=== PATIENT | male | born 1945 | race Caucasian/White ===

== ENCOUNTER → 2017-09-23 | Day surgery (SDC) | payer OTHER ==
[~2017-09-23] MED LIST: ACETAMINOPHEN-1 EAC1 PO; ACTONEL150 MG PO; ALLEGRA ALLERG180 MG PO; ASPIR-TRIN325 MG PO; CALCIUM CITRAT1 EAC7 PO; CRESTOR10 MG PO; IBUPROFEN 800800 M1 PO; LOSARTAN-HCTZ1 EAC2 PO; OMEPRAZOLE40 MG PO; VITAMIN D3400 UNIT PO
[2017-09-23 06:28] LABS: HEMATOCRIT 41.9 % (42.0-52.0); MCH 27.7 pg (26.0-34.0); MCHC 33.4 g/dL (28.0-37.0); MPV 7.6 fl. (7.2-11.1); RBC 5.05 mil/uL (4.50-6.00); RDW-CV 14.2 % (10.5-14.5); WBC 6.6 thou/uL (4.0-11.0)
[2017-09-23 06:34] LABS: CALCIUM 8.7 mg/dL (8.5-10.1); CREATININE 1.1 mg/dL (0.6-1.3); POTASSIUM 3.6 mmol/L (3.5-5.1)
[2017-09-23 06:44] LABS: ALBUMIN 3.4 g/dL (3.4-5.0); TOTAL BILIRUBIN 0.3 mg/dL (<0.1-1.0); TOTAL PROTEIN 6.4 g/dL (6.4-8.2)
--- NOTE | 2017-09-23 16:34 | EKG ---
[place] [address] ELECTROCARDIOGRAM REPORT Name: LARRY LEDEZMA Room: [facility]#: [id number] Admission: 09/23/17 Attend Phys: Shawn Stiles, Discharge: Date of : 41 Report #: [id number] THIS REPORT FOR: //name// [facility] Test Date: 2017-09-23 Test Time: 07:43:10 Pat Name: LARRY LEDEZMA Department: Room: Gender: M Pier Hand: : 1945 Requested By: Shawn Stiles Order Number: [id number] Reading MD: Raymond Guaman Measurements Intervals Welsh Rate: 62 P: 63 LA: 165 QRS: 65 QRSD: 123 T: 45 QT: 419 QTc: 426 Interpretive Statements Sinus rhythm Nonspecific intraventricular conduction delay No previous ECG available for comparison Electronically Signed On 09-23-2017 16:34:13 CDT by Raymond Guaman [email or web address] <ELECTRONICALLY SIGNED> By: Raymond Guaman MD, [facility] 09/23/17 1634 0743 0743 Raymond Guaman MD, FACC /EPI
--- NOTE | 2017-12-09 11:54 | OP ---
[address] [address] OPERATIVE REPORT Name: BRISALARRY Lissy Room: [facility]#: [id number] Admission: 09/23/17 Attend Phys: Shawn Stiles, Discharge: Date of : 41 Report #: [id number] THIS REPORT FOR: //name// CC: FAM unknown Shawn BARRETO [facility] DICTATED BY: Alonzo Santos DO DATE OF SERVICE: 09/23/2017 PREOPERATIVE DIAGNOSIS: Right ankle bimalleolar equivalent ankle fracture. POSTOPERATIVE DIAGNOSIS: Right ankle bimalleolar equivalent ankle fracture. PROCEDURE: Right ankle open reduction and internal fixation with syndesmotic fixation with Arthrex TightRope. SURGEON: Shawn Stiles DO. DRIER HELPER: Alonzo Santos DO. ANESTHESIA: General and regional block. ESTIMATED BLOOD LOSS: 10 mL. SPECIMENS: None. DRAINS: None. CONDITION OF THE PATIENT TO PACU: Stable. INDICATIONS FOR PROCEDURE: The patient is a 71-year-old male who had a twisting injury to his right ankle, had pain and deformity, had x-rays taken, which demonstrated a SER type 4 ankle fracture with some increased medial clear space. Distal fibular fracture, it was recommended he undergo operative fixation for this. All risks, benefits, and complications were reviewed. The patient wished to proceed. DESCRIPTION OF PROCEDURE: The patient was brought to the operative suite, placed supine on a well-padded table. Right lower extremity was positioned on a bone foam that was secured in place. Extremity was sterilely prepped and draped in standard fashion. Time-out was taken to ensure correct patient, procedure and operative site. Everybody in the room was in agreement. At that time, a 15 blade scalpel was used to make an incision over the lateral aspect of the fibula down through skin and subcutaneous tissue distally. Care [place] [address] OPERATIVE REPORT Name: LARRY LEDEZMA Room: [facility]#: [id number] Admission: 09/23/17 Attend Phys: Shawn Stiles, Discharge: Date of : 41 Report #: [id number] the superficial peroneal nerve was not injured. Dissection was carried out proximally with Metzenbaum scissors. Once down to the fibula, the fracture ends were carefully cleared with a curette and Whitney tissue elevator. Once the fracture ends were freed up, we used a lobster claw on a point to point, we were able to obtain a provisional reduction with the lobster claw. We used a 3.5 mm drill bit on the near cortex and we used the drill guide and 2.5 mm drill bit to drill the far cortex and we were able to lag by technique with a 3.5 mm screw with excellent fixation with the screw. We then used a 1/3 tubular plate as a neutralization plate. We used two cancellous screws distally in the plate and 3 cortical screws proximally and passed an Arthrex TightRope through the other hole. The syndesmosis was reduced under fluoroscopy as this device was tightened down over the fibular plate. At this time, final images were taken. The wound was thoroughly irrigated. Subcutaneous tissue was closed with a 0 Vicryl followed by 2-0 Vicryl and then 3-0 nylon in a simple interrupted fashion. Xeroform, 4 x 4's, soft roll, 4 inch OCL and Nilesh bandage were applied and a posterior splint. The patient was awoken from anesthesia and brought to PACU in stable condition. <ELECTRONICALLY SIGNED> By: Shawn Stiles DO 12/09/17 1154 [id number] [id number] Stiles DO /nt
== END | disposition home or self-care (01) ==
LOC: M.SUR 06:00
PROVIDERS: Orthopaedic Surgery
DX: S82.841A Displaced bimalleolar fracture of right lower leg, initial encounter for closed fracture (principal); Z98.890 Other specified postprocedural states; Z79.82 Long term (current) use of aspirin; Z79.899 Other long term (current) drug therapy; Z88.8 Allergy status to other drugs, medicaments and biological substances; X58.XXXA Exposure to other specified factors, initial encounter; Y93.89 Activity, other specified; Y92.89 Other specified places as the place of occurrence of the external cause; Y99.8 Other external cause status